=== PATIENT | male | born 1945 | race Caucasian/White ===

== ENCOUNTER → 2016-09-21 | Day surgery (SDC) | payer BC ==
[2016-09-21] VITALS (8 sets, daily range): BP systolic 126–143; BP diastolic 81–91; PULSE 59–70; TEMP 36.7; O2SAT 95–97; Ht 188 cm; Wt 92.0 kg
[~2016-09-21] VITALS: Ht 188 cm; Wt 92.0 kg
[~2016-09-21] MED LIST: ASPI325T39 PO; CHOL100010 PO; ETOMIDATE 2 MG/ML 20 ML VIAL IV ONE; FEXO1TAB49 PO; FINA5TAB PO; FLEC150T PO; MAGN250T9 PO; METO25TA3 PO; METO25TA56 PO; OMEG10007 PO; RIVA1TAB4 PO; [UNRECOGNIZED DRUG - CODE] PO
--- NOTE | 2016-09-21 09:34 | History & Physical Bridge Note ---
H&P Re-Evaluation Bridge Note: I have examined the patient, reviewed the History & Physical and in the interval since the performance of the History & Physical I have noted the following changes of clinical significance: No changes noted
--- NOTE | 2016-09-21 09:40 | Cardiology Procedure Brief Nt ---
Preliminary Cardiology Note Procedure Date Sep 21, 2016. Pre-Procedure Diagnosis Atrial flutter Post-Procedure Diagnosis Normal sinus rhythm Procedure(s) Performed Elective electrical cardioversion Toby Maker Edil Umanzor MD Hand Kiss Setter(s) Melissa Pollack RN Estimated Blood Loss None Medication(s) Etomidate 8 mg IVP Preliminary Findings Successful cardioversion to sinus rhythm with 70 J biphasic energy Recommendations Continue current meds Specimens None Drains None Anesthesia None Complication(s) None Disposition
--- NOTE | 2016-09-21 09:41 | Procedure Note ---
Pre-Mod Sedation Assessment General Date of Moderate Sedation: Sep 21, 2016. Vital Signs: Vital Signs Past 12 Hours Date Time Temp Pulse Resp B/P Pulse Ox O2 Delivery O2 Flow Rate FiO2 09/21/16 09:26 70 15 130/87 97 Room Air 09/21/16 09:21 66 11 127/81 96 Nasal Cannula 2.0 09/21/16 09:15 60 14 131/81 95 Nasal Cannula 2.0 09/21/16 09:13 64 15 143/91 96 Nasal Cannula 2.0 09/21/16 08:37 36.7 59 16 126/84 95 Room Air Review Cardiovascular: + irregularly irregular Abdomen: soft Lungs: lungs clear Airway Class: I Pre-Sedation Airway Assessment Oral Cavity: WNL Able to Visualize Vocal Cords: No Short Thick Neck: No Hx of Sleep Apnea: No Smoking Status: Never Smoker Mallampati Classification: Class I ASA Classification: Class I Procedure Planning Contraindications-for Mod Sed: None Yes Notes The planned sedation has been discussed with the patient and consent obtained. I have identified the patient, determined the appropriateness of sedation and have assessed the patient immediately prior to the procedure. All medicine(s) and interventions are by my order.
--- NOTE | 2016-09-21 09:50 | Procedure Note ---
Post-Mod Sedation Assessment General Date of Moderate Sedation Sep 21, 2016. Vital Signs: Vital Signs Past 12 Hours Date Time Temp Pulse Resp B/P Pulse Ox O2 Delivery O2 Flow Rate FiO2 09/21/16 09:26 70 15 130/87 97 Room Air 09/21/16 09:21 66 11 127/81 96 Nasal Cannula 2.0 09/21/16 09:15 60 14 131/81 95 Nasal Cannula 2.0 09/21/16 09:13 64 15 143/91 96 Nasal Cannula 2.0 09/21/16 08:37 36.7 59 16 126/84 95 Room Air Review - Discharge Criteria Vital Signs Stable: Yes Alert/Oriented/Conversant: Yes Returned to Baseline Mental St: Yes Nausea Absent/Minimal: Yes Pain/Discomfort/Absent/Minimal: Yes Normal/Baseline Respirations: Yes Active Bleeding?: No Pt Received D/C Instructions: Yes Prescriptions Given: None Specific Proced. D/C Criteria Distal Pulses Present (Cardiac: N/A Groin site assessed-Card Cath: N/A Voided Prior To Discharge: N/A Discharged Patients Adult Escort/Transportation: Yes
--- NOTE | 2016-09-21 09:55 | Discharge Instructions ---
Discharge Instructions Admission Reason for Admission: *Dr Umanzor To Do* Atrial Flutter Discharge Discharge Diagnosis / Problem: Successful cardioversion to sinus rhythm Discharge Goals Goal(s): Specific goals (Maintain sinus rhythm) Activity Recommendations Activity Limitations: as noted below (No driving today) Lifting Limitations: none Exercise/Sports Limitations: none May Resume Sexual Activity: when tolerated Shower/Bathe: no limitations Driving or Machine Use: resume 1 day after discharge Only driving limitation. . Instructions / Follow-Up Instructions / Follow-Up Continue current meds Follow up within a month Current Hospital Diet Patient's current hospital diet: Discharge Diet Recommended Diet: Regular Diet Fluid Restriction: None Procedures Procedures Performed: Elective electrical cardioversion Pending Studies Studies pending at discharge: no Medical Emergencies . Who to Call and When: Medical Emergencies: If at any time you feel your situation is an emergency, please call 911 immediately. . Non-Emergent Contact Non-Emergency issues call your: Equipment Installation Professional Call Non-Emergent contact if: you have any medication questions . . "Provider Documentation" section prepared by Jorge Umanzor. VTE Core Measure Inpt VTE Proph given/why not?: Other Anticoagulation [place] Drug Monitoring Program Search Results: no issues identified
--- NOTE | 2016-09-21 10:33 | CARDIOVERSION ---
DATE OF OPERATION: 09/21/2016 PRINCIPLE PROCEDURE: Elective electrical cardioversion. INDICATION: Refractory atrial flutter. PROCEDURE: After informed consent was obtained, a timeout was undertaken. The patient was sedated smoothly with a total of 8 mg of intravenous etomidate. The patient was monitored continuously by ECG, blood pressure, and pulse oximetry, and end-tidal CO2. The patient was given 70 joules of biphasic energy via hands-off paddles and successfully converted to sinus rhythm. The patient awoke following the procedure. He was conversant and without complaints. He is anxious for hospital discharge. He will continue on his usual medications. Followup within 2-4 weeks. I attest to the content of the Intraoperative Record and any orders documented therein. Any exceptions are noted below. REDD
== END | disposition home or self-care (01) ==
LOC: C.CPL 07:59
PROVIDERS: ATTEND Internal Medicine Cardiovascular Disease
DX: I48.92 Unspecified atrial flutter (principal)

== ENCOUNTER → 2017-01-17 | Outpatient (CLI) | payer BC ==
[~2017-01-17] MED LIST changes: -ASPI325T39 PO; -ETOMIDATE 2 MG/ML 20 ML VIAL IV ONE
== END | disposition home or self-care (01) ==
LOC: C.LAB 07:54
PROVIDERS: ATTEND Urology
DX: N40.0 Benign prostatic hyperplasia without lower urinary tract symptoms (principal); R97.20 Elevated prostate specific antigen [PSA]

== ENCOUNTER → 2017-04-05 | Outpatient (CLI) | payer BC | END | disposition home or self-care (01) | LOC: C.RDSM 08:48 | PROVIDERS: ATTEND Family Medicine Sports Medicine | DX: M25.561 Pain in right knee (principal) ==

== ENCOUNTER → 2017-04-26 | Outpatient (CLI) | payer BC ==
[2017-04-26 10:01] LABS: ALT/SGPT 23 U/L (12-78); BLOOD UREA NITROGEN 18 mg/dl (7-18); BUN/CREATININE RATIO 15.3 (10-20); CARBON DIOXIDE 32 mmol/L (21-32); CHLORIDE 104 mmol/L (98-107); CHOLESTEROL 188 mg/dl (0-200); GLUCOSE 99 mg/dl (70-99); POTASSIUM 4.1 mmol/L (3.5-5.1); SODIUM 138 mmol/L (136-145); TRIGLYCERIDES 110 mg/dl (0-150); URIC ACID 4.9 mg/dl (2.6-7.2); VERY LOW DENSITY LIPOPROT CALC 22 mg/dl
[2017-04-26 10:04] LABS: ESTIMATED AVERAGE GLUCOSE 114 mg/dl; HA1C FLAG Normal (Normal)
[2017-04-26 10:09] LABS: ALB/GLOB RATIO 1.1 (0.9-2); ALKALINE PHOSPHATASE 67 U/L (45-117); AST/SGOT 17 U/L (15-37); CHOLESTEROL/HDL RATIO 3.5; HDL CHOLESTEROL 54 mg/dl; LDL CHOLESTEROL CALCULATED 112 mg/dl; PHOSPHORUS 2.4 mg/dl (2.5-4.9)
[2017-04-26 10:15] LABS: BASO % 0.8 %; BASO ABS # 0.03 K/uL (0-0.2); COMPLETE YES; EOS % 1.8 %; HEMATOCRIT 47.8 % (42-52); LYMPH % 35.8 %; LYMPH ABS # 1.38 K/uL (1.2-3.4); MEAN CELL VOLUME 91.6 fL (80-100); MEAN CORPUSCULAR HGB CONC 34.9 g/dl (32-36); MEAN PLATELET VOLUME 10.3 fL (7.4-10.4); MONO % 8.6 %; PLATELET COUNT 138 K/uL (130-400); RED BLOOD COUNT 5.22 M/uL (4.7-6.1); WHITE BLOOD COUNT 3.85 K/uL (4.8-10.8)
[2017-04-27 11:17] LABS: C-REACTIVE PROT HIGHSEN 0.5 MG/L
--- NOTE | 2017-05-05 11:39 | CODING QUERY MEDICAL NECESSITY ---
SUPPORTING DIAGNOSIS NEEDED A supporting diagnosis is required for the test/procedure performed on this patient in order for us to be reimbursed by the patient's insurance. Please provide a supporting diagnosis for the following test/procedure listed below next to the test name along with your signature. *If there is no additional diagnosis for this patient that would support the following test/procedure please document that below next to the test/procedure. Test(s)/Procedure(s) that require a supporting diagnosis: * PSA DIAGNOSIS: Provider Signature: Date: Thank you Martine Collado [facility] Information Management Once completed, please kindly fax back to [phone] For questions please call [phone]
== END | disposition home or self-care (01) ==
LOC: C.LAB 07:48
PROVIDERS: ATTEND Family Medicine
DX: R73.09 Other abnormal glucose (principal); E55.9 Vitamin D deficiency, unspecified; D51.9 Vitamin B12 deficiency anemia, unspecified; N40.0 Benign prostatic hyperplasia without lower urinary tract symptoms

== ENCOUNTER → 2017-05-17 | Outpatient (CLI) | payer BC | END | disposition home or self-care (01) | LOC: C.LABSPEC 17:00 | PROVIDERS: ATTEND Urology | DX: R30.0 Dysuria (principal); R39.15 Urgency of urination ==

== ENCOUNTER → 2017-10-27 | Outpatient (CLI) | payer BC ==
[~2017-10-27] MED LIST changes: -METO25TA3 PO; +METO25TA4 PO
[2017-10-27 09:33] LABS: BASO % 0.6 %; BASO ABS # 0.02 K/uL (0-0.2); EOS % 1.2 %; EOS ABS # 0.04 K/uL (0-0.5); HEMATOCRIT 46.4 % (42-52); HEMOGLOBIN 16.6 g/dL (14.0-18.0); IG# 0.01 K/uL (0.00-0.02); LYMPH % 34.4 %; LYMPH ABS # 1.18 K/uL (1.2-3.4); MEAN CELL VOLUME 90.3 fL (80-100); MEAN CORPUSCULAR HEMOGLOBIN 32.3 pg (25-34); MEAN CORPUSCULAR HGB CONC 35.8 g/dl (32-36); MEAN PLATELET VOLUME 10.1 fL (7.4-10.4); MONO % 9.6 %; MONO ABS # 0.33 K/uL (0.11-0.59); NEUT % 53.9 %; NEUT ABS # 1.85 K/uL (1.4-6.5); PLATELET COUNT 147 K/uL (130-400); RED CELL DISTRIBUTION WIDTH CV 12.9 % (11.5-14.5); RED CELL DISTRIBUTION WIDTH SD 42.4 fL (36.4-46.3); WHITE BLOOD COUNT 3.43 K/uL (4.8-10.8)
[2017-10-27 10:01] LABS: ALBUMIN 3.7 gm/dl (3.4-5.0); ALT/SGPT 23 U/L (12-78); AST/SGOT 14 U/L (15-37); BLOOD UREA NITROGEN 19 mg/dl (7-18); CARBON DIOXIDE 31 mmol/L (21-32); CHOLESTEROL 191 mg/dl (0-200); CREATININE 0.88 mg/dl (0.60-1.40); GLUCOSE 102 mg/dl (70-99); POTASSIUM 4.1 mmol/L (3.5-5.1); SODIUM 139 mmol/L (136-145); TRANSFERRIN 246 mg/dl (200-360); URIC ACID 4.4 mg/dl (2.6-7.2)
[2017-10-27 10:13] LABS: ALKALINE PHOSPHATASE 67 U/L (45-117); LDL CHOLESTEROL CALCULATED 117 mg/dl
[2017-10-27 10:50] LABS: HEMOGLOBIN A1C 5.7 % (4.5-5.6)
== END | disposition home or self-care (01) ==
LOC: C.LAB 07:33
PROVIDERS: ATTEND Family Medicine
DX: E88.81 Metabolic syndrome and other insulin resistance (principal); E55.9 Vitamin D deficiency, unspecified; D51.9 Vitamin B12 deficiency anemia, unspecified; E78.9 Disorder of lipoprotein metabolism, unspecified; R53.83 Other fatigue

== ENCOUNTER → 2018-03-17 | Day surgery (SDC) | payer BC ==
[2018-03-08 15:20] VITALS: Ht 188 cm; Wt 90.9 kg
[~2018-03-17] VITALS: Ht 188 cm; Wt 90.9 kg
[~2018-03-17] MED LIST changes: +LIDOCAINE HCL 2% 2 ML VIAL (20MG/ML) ONE; +MULT-221 PO; +PROPOFOL IV EMULSION 10 MG/ML 20 ML VIAL ONE; +SODIUM CHLORIDE 0.9% 500ML 500 ML IV ONE; -[UNRECOGNIZED DRUG - CODE] PO
--- NOTE | 2018-03-17 10:12 | Endo History and Physical ---
History & Physical Date of Service: Mar 17, 2018. Chief Complaint: History of colon polyps Referring Physician: Tye History of Present Illness 72 yo CM who presents for colonoscopy secondary to history of colon polyps. Past Surgical History Hx Cardiac Surgery: No Hx Internal Defibrillator: No Hx Pacemaker: No Hx Abdominal Surgery: No Hx Post-Op Nausea and Vomiting: No Hx Cancer Surgery: No Hx Thoracic Surgery: No Hx Orthopedic: No Hx Urinary Tract Surgery: Yes (TRANSURETHRAL NEEDLE ABLATION) Family History None Social History Smoking Status: Never Smoker Hx Substance Use: No Hx Alcohol Use: No Allergies Coded Allergies: No Known Allergies (Unverified , 03/08/18) Current Medications Reported Home Medications Medications Dose Route/Sig Max Daily Dose Days Date Category Dose Instructions Multi For Him 50+ (Multiple Vitamins W/ Minerals) 1 Tab Tab 1 Tab PO DAILY 03/08/18 Reported Lopressor (Metoprolol Tartrate) 25 Mg Tab 25 Mg PO DAILY PRN 09/21/16 Reported PRN for a-fib [place]-3 (Fish Oil) 1 Ea Cap 1 Cap PO BID 09/21/16 Reported Vitamin D (Cholecalciferol) 1,000 Unit Tab 1 Tab PO DAILY 09/21/16 Reported Xarelto (Rivaroxaban) 20 Mg Tab 1 Tab PO DAILY 30 09/21/16 Reported Flecainide Acetate 150 Mg Tab 1 Tab PO BID 09/21/16 Reported Елена Allergy (Fexofenadine Hcl) 180 Mg Tab 1 Tab PO DAILY 30 09/21/16 Reported Magnesium 250 Mg Tab 250 Mg PO DAILY 03/08/13 Reported Proscar (Finasteride) 5 Mg Tab 5 Mg PO DAILY 03/08/13 Reported Toprol Xl (Metoprolol Succinate) 25 Mg Tabcr 25 Mg PO BID 03/08/13 Reported Vital Signs Weight (Kilograms): 90.91 Height (Feet): 6 Height (Inches): 2 Date Time Temp Pulse Resp B/P (MAP) Pulse Ox O2 Delivery O2 Flow Rate FiO2 03/17/18 09:31 36.7 58 18 134/79 (97) 96 Room Air Physical Exam General Appearance: WD/WN, no apparent distress Respiratory/Chest: Auscultation: breath sounds normal Cardiovascular: Heart Auscultation: RRR Abdomen: Bowel Sounds: normal Inspection & Palpation: soft, non-distended, no tenderness, guarding & rebound Assessment and Plan Assessment: 72 yo CM who presents for colonoscopy secondary to history of colon polyps. Plan: Proceed with colonoscopy.
--- NOTE | 2018-03-17 11:00 | Anesthesiology Progress Note ---
Anesthesia Post Op Note Date & Time Mar 17, 2018 at 11:00 Vital Signs Pain Intensity: 0 Vital Signs Past 12 Hours Date Time Temp Pulse Resp B/P (MAP) Pulse Ox O2 Delivery O2 Flow Rate FiO2 03/17/18 10:48 58 18 99/57 (71) 95 Room Air 03/17/18 09:31 36.7 58 18 134/79 (97) 96 Room Air Notes Mental Status: alert / awake / arousable, participated in evaluation Pt Amnestic to Procedure: Yes Nausea / Vomiting: adequately controlled Pain: adequately controlled Airway Patency, RR, SpO2: stable & adequate BP & HR: stable & adequate Hydration State: stable & adequate Anesthetic Complications: no major complications apparent
--- NOTE | 2018-03-17 11:09 | Discharge Instructions ---
Endoscopy Patient Instructions Date / Procedure(s) Performed Mar 17, 2018. Colonoscopy Allergy Information Coded Allergies: No Known Allergies (Unverified , 03/08/18) Discharge Date / Findings Mar 17, 2018. Colon polyps Diverticulosis Internal hemorrhoids Medication Instructions Stopped Medication(s): Xarelto last 03/10/18 OK to resume all medications today as prescribed Reported Home Medications Medications Dose Route/Sig Max Daily Dose Days Date Category Dose Instructions Multi For Him 50+ (Multiple Vitamins W/ Minerals) 1 Tab Tab 1 Tab PO DAILY 03/08/18 Reported Lopressor (Metoprolol Tartrate) 25 Mg Tab 25 Mg PO DAILY PRN 09/21/16 Reported PRN for a-fib [place]-3 (Fish Oil) 1 Ea Cap 1 Cap PO BID 09/21/16 Reported Vitamin D (Cholecalciferol) 1,000 Unit Tab 1 Tab PO DAILY 09/21/16 Reported Xarelto (Rivaroxaban) 20 Mg Tab 1 Tab PO DAILY 30 09/21/16 Reported Flecainide Acetate 150 Mg Tab 1 Tab PO BID 09/21/16 Reported Елена Allergy (Fexofenadine Hcl) 180 Mg Tab 1 Tab PO DAILY 30 09/21/16 Reported Magnesium 250 Mg Tab 250 Mg PO DAILY 03/08/13 Reported Proscar (Finasteride) 5 Mg Tab 5 Mg PO DAILY 03/08/13 Reported Toprol Xl (Metoprolol Succinate) 25 Mg Tabcr 25 Mg PO BID 03/08/13 Reported Provider Instructions Activity Restrictions - No exercising or heavy lifting for 24 hours. - Do not drink alcohol the day of the procedure. - Do not drive a car or operate machinery until the day after the procedure. - Do not make any important decisions or sign important papers in 24 hours after the procedure. Following Day: - Return to full activity which may include returning to work/school. Diet Start your diet with liquids and light foods (jello, soup, juice, toast). Then eat your usual diet if not nauseated. Treatment For Common After Affects For mild abdominal pain, bloating, or excessive gas: - Rest - Eat lightly - Lie on right side Follow-Up Information Follow-up with Tye as scheduled Anesthesia Information What You Should Know You have had a procedure that required some medicine to reduce anxiety and discomfort. This treatment is called moderate sedation. After receiving the treatment, you may be sleepy, but you will be able to breathe on your own. The effects of the treatment may last for several hours. Follow these instructions along with Activity/Diet recommendations noted above: * Do NOT do anything where dizziness or clumsiness would be dangerous. * Rest quietly at home today, then you can be up and about tomorrow. * Have a responsible person stay with you the rest of today. * You may have had an I.V. today. If so, you may take the dressing off later today. Recommendations Call your doctor if: * Trouble breathing * Continuous vomiting for more than 24 hours * Temperature above 101 degrees * Severe abdominal pain or bloating * Pain not relieved by pain medicine ordered * There is increased drainage or redness from any incision * A large amount of rectal bleeding greater than 2-3 tablespoons. (If you had a polyp/s removed or have hemorrhoids, a small amount of blood - from the rectum is to be expected.) * You have any unanswered questions or concerns. IN THE EVENT OF A SERIOUS EMERGENCY, GO TO THE NEAREST EMERGENCY ROOM Your discharge instructions were prepared by provider Tj Thomas. Patient Instructions Signature Page Jorge Wilson Patient (or Guardian) Signature/Date: I have read and understand the instructions given to me by my caregivers. Caregiver/RN/Doctor Signature/Date: The above-named patient and/or guardian has received patient instructions on this date. + Original Patient Signature Page (only) stays with chart. Please make copy for patient.
[2018-03-17 11:18] VITALS: BP 120/78; PULSE 56; O2SAT 96
--- NOTE | 2018-03-17 11:21 | GI REPORT ---
Patient Name: Jorge Wilson Procedure Date: 03/17/2018 10:08 AM Date of : 1945 Admit Type: Outpatient Age: 72 Gender: Male Attending MD: Tj Thomas DO Procedure: Colonoscopy Providers: Tj Thomas DO Referring MD: Aldo Wilks Indications: High risk colon cancer surveillance: Personal history of colonic polyps Medicines: Monitored Anesthesia Care Complications: No immediate complications. Estimated Blood Loss: Estimated blood loss: none. Procedure: Pre-Anesthesia Assessment: - Prior to the procedure, a History and Physical was performed, and patient medications and allergies were reviewed. The patient's tolerance of previous anesthesia was also reviewed. The risks and benefits of the procedure and the sedation options and risks were discussed with the patient. All questions were answered, and informed consent was obtained. Prior Anticoagulants: The patient has taken Xarelto (rivaroxaban), last dose was 5 days prior to procedure. ASA Grade Assessment: III - A patient with severe systemic disease. After reviewing the risks and benefits, the patient was deemed in satisfactory condition to undergo the procedure. After I obtained informed consent, the scope was passed under direct vision. Throughout the procedure, the patient's blood pressure, pulse, and oxygen saturations were monitored continuously. The scope was introduced through the anus and advanced to the terminal ileum. The colonoscopy was performed without difficulty. The patient tolerated the procedure well. The quality of the bowel preparation was good. The terminal ileum, ileocecal valve, appendiceal orifice, and rectum were photographed. Findings: The perianal and digital rectal examinations were normal. Two sessile polyps were found in the ascending colon and cecum. The polyps were 5 to 8 mm in size. These polyps were removed with a hot snare. Resection and retrieval were complete. A 3 mm polyp was found in the ascending colon. The polyp was sessile. The polyp was removed with a cold snare. Resection and retrieval were complete. A 2 mm polyp was found in the ascending colon. The polyp was sessile. The polyp was removed with a cold biopsy forceps. Resection and retrieval were complete. Multiple small-mouthed diverticula were found in the sigmoid colon. Non-bleeding internal hemorrhoids were found during retroflexion. The hemorrhoids were small. Impression: - Two 5 to 8 mm polyps in the ascending colon and in the cecum, removed with a hot snare. Resected and retrieved. - One 3 mm polyp in the ascending colon, removed with a cold snare. Resected and retrieved. - One 2 mm polyp in the ascending colon, removed with a cold biopsy forceps. Resected and retrieved. - Diverticulosis in the sigmoid colon. - Non-bleeding internal hemorrhoids. Recommendation: - Resume previous diet. - Continue present medications. - Await pathology results. - Return to primary care physician as previously scheduled. Tj Thomas, DO 03/17/2018 11:21:18 AM This report has been signed electronically. Note Initiated On: 03/17/2018 10:08 AM Number of Addenda: 0 I attest to the content of the Intraoperative Record and orders documented therein, exceptions below {[id number]}
== END | disposition home or self-care (01) ==
LOC: C.GI 08:57
PROVIDERS: ATTEND Internal Medicine
DX: Z12.11 Encounter for screening for malignant neoplasm of colon (principal); D12.2 Benign neoplasm of ascending colon; D12.0 Benign neoplasm of cecum; K57.30 Diverticulosis of large intestine without perforation or abscess without bleeding; K64.8 Other hemorrhoids; Z86.010 Personal history of colon polyps; I48.91 Unspecified atrial fibrillation; N40.0 Benign prostatic hyperplasia without lower urinary tract symptoms; Z79.01 Long term (current) use of anticoagulants